=== PATIENT | male | born 1995 | race Two or more races ===

== ENCOUNTER 2017-01-18 20:37 | Emergency (ER) | payer OTHER ==
[2017-01-18 21:16] LABS: ABSOLUTE BASOPHILS # (AUTO) 0.1 10^3/uL (0.0-0.2); ABSOLUTE EOSINOPHILS # (AUTO) 0.3 10^3/uL (0.0-0.6); ABSOLUTE LYMPHOCYTES (AUTO) 2.3 10^3/uL (0.5-4.7); ABSOLUTE MONOCYTES (AUTO) 0.8 10^3/uL (0.1-1.4); BASOPHILS % (AUTO) 0.7 % (0-2); EOSINOPHILS % (AUTO) 2.8 % (0-6); HEMATOCRIT 46.6 % (37.9-51.0); HEMOGLOBIN 15.8 g/dL (13.5-17.0); HGB HCT DIFFERENCE 0.8; LYMPHOCYTES % (AUTO) 24.2 % (13-45); MEAN CORPUSCULAR HEMOGLOBIN 28.1 pg (27.0-33.4); MEAN CORPUSCULAR VOLUME 83 fl (80-97); MONOCYTES % (AUTO) 8.8 % (3-13); RED BLOOD COUNT 5.64 10^6/uL (4.35-5.55); RED CELL DISTRIBUTION WIDTH 12.9 % (11.5-14.0); SEGMENTED NEUTROPHILS % (AUTO) 63.5 % (42-78); WHITE BLOOD COUNT 9.5 10^3/uL (4.0-10.5)
[2017-01-18 21:22] LABS: APPEARANCE,URINE CLEAR; BILIRUBIN,URINE NEGATIVE (NEGATIVE); GLUCOSE, URINE NEGATIVE (NEGATIVE); KETONES,URINE NEGATIVE (NEGATIVE); LEUKOCYTE ESTERASE,URINE NEGATIVE (NEGATIVE); NITRITE,URINE NEGATIVE (NEGATIVE); PROTEIN,URINE NEGATIVE (NEGATIVE); UROBILINOGEN,URINE NEGATIVE mg/dL (<2.0)
[2017-01-18 21:37] LABS: ALANINE AMINOTRANSFERASE 37 U/L (21-72); ALBUMIN 4.8 g/dL (3.5-5.0); ALKALINE PHOSPHATASE 78 U/L (38-126); ANION GAP 13 (5-19); ASPARTATE AMINO TRANSFERASE 38 U/L (17-59); BILIRUBIN,DIRECT 0.3 mg/dL (0.0-0.4); BILIRUBIN,TOTAL 0.6 mg/dL (0.2-1.3); BLOOD UREA NITROGEN 19 mg/dL (7-20); CALCIUM 9.9 mg/dL (8.4-10.2); CARBON DIOXIDE 26 mmol/L (22-30); CHLORIDE 102 mmol/L (98-107); CREATININE RESULT 0.95 mg/dL (0.52-1.25); GLUCOSE 89 mg/dL (75-110); LIPASE 87.7 U/L (23-300); POTASSIUM 4.4 mmol/L (3.6-5.0); SODIUM 140.9 mmol/L (137-145); TOTAL PROTEIN 8.3 g/dL (6.3-8.2)
[2017-01-18] MEDS ORDERED: POLYETHYLENE GLYCOL 3350 POWDER 17 GM/1 PACKET PO ONE (23:33)
--- NOTE | 2017-01-18 23:33 | ER Document Report ---
ED General - General Chief Complaint: Abdominal Pain Stated Complaint: ABDOMINAL PAIN Time Seen by Provider: 01/18/17 21:52 Notes: Patient is a 21-year-old male without past medical history who presents with acute onset of lower abdominal pain approximately 45 hours prior to arrival. States that he does a diffuse lower abdominal pain that he describes as a cramping, stabbing pain. Nothing improves or worsens this pain. Denies any associated fever, nausea, vomiting or diarrhea. States he has had similar symptoms in the past when he has been constipated although notes that he has a bowel movement approximately every 1-2 days. He has not seen his primary care doctor regarding today's concerns. Denies any prior history of abdominal surgeries. Denies any testicular pain or dysuria. TRAVEL OUTSIDE OF THE [place] IN LAST 30 DAYS: No - Related Data Allergies/Adverse Reactions: No Known Allergies Allergy (Unverified 10/21/15 02:52) Home Medications: Current Home Medications RX: No Home Medications 01/18/17 [History] Past Medical History - General Information source: Patient - Social History Smoking Status: Never Smoker Frequency of alcohol use: None Drug Abuse: None Lives with: Spouse/Significant other Family History: Reviewed & Not Pertinent Patient has suicidal ideation: No Patient has homicidal ideation: No Renal/ Medical History: Denies: Hx Peritoneal Dialysis Review of Systems - Review of Systems Notes: Constitutional: Negative for fever. HENT: Negative for sore throat. Eyes: Negative for visual changes. Cardiovascular: Negative for chest pain. Respiratory: Negative for shortness of breath. Gastrointestinal: Positive for abdominal pain, negative for vomiting or diarrhea. Genitourinary: Negative for dysuria. Musculoskeletal: Negative for back pain. Skin: Negative for rash. Neurological: Negative for headaches, weakness or numbness. 10 point ROS negative except as marked above and in HPI. Physical Exam - Vital signs Vitals: Temp Pulse Resp BP Pulse Ox 98.1 F 77 16 116/75 98 01/18/17 20:59 01/18/17 20:59 01/18/17 20:59 01/18/17 20:59 01/18/17 20:59 Interpretation: Normal Notes: PHYSICAL EXAMINATION: GENERAL: Well-appearing, well-nourished and in no acute distress. HEAD: Atraumatic, normocephalic. EYES: Pupils equal round and reactive to light, extraocular movements intact, sclera anicteric, conjunctiva are normal. ENT: nares patent, oropharynx clear without exudates. Moist mucous membranes. NECK: Normal range of motion, supple without lymphadenopathy LUNGS: Breath sounds clear to auscultation bilaterally and equal. No wheezes rales or rhonchi. HEART: Regular rate and rhythm without murmurs ABDOMEN: Soft, nontender, normoactive bowel sounds. No guarding, no rebound. No masses appreciated. Genitourinary: Positive cremasteric reflex bilaterally. No epididymal or testicular tenderness on palpation. EXTREMITIES: Normal range of motion, no pitting or edema. No cyanosis. NEUROLOGICAL: No focal neurological deficits. Moves all extremities spontaneously and on command. PSYCH: Normal mood, normal affect. SKIN: Warm, Dry, normal turgor, no rashes or lesions noted. Course - Re-evaluation Re-evalutation: 01/18/17 23:30 Patient presents with 5 hours of acute onset of sharp, stabbing pain to the suprapubic and diffuse lower abdominal area. He has no focal rebound or guarding in any location. He has no focal tenderness location. Specifically no focal right lower quadrant tenderness and I do not suspect an acute appendicitis based on his exam or history. His history and exam are not consistent with an acute nephrolithiasis, pyelonephritis. Testicular exam is unremarkable without evidence of testicular torsion, epididymitis, no evidence of penile lesions. He has no upper abdominal tenderness to suggest an acute gastritis, cholecystitis, pancreatitis. Laboratories are unremarkable and do not suggest any acute pathology. Patient does relate a history of having one bowel movement approximately every 1-2 days but does take 10-20 minutes to have a bowel movement. Notes he has had similar pains in the past with constipation. This time I do not suspect any acute life-threatening pathology based on patient's well appearance, vitals, laboratories exam and history. I have encouraged him to start MiraLAX. I have informed him that we do not have a definitive diagnosis today but it may be related to constipation. I clearly informed him that he needs to return to the emergency department immediately if he has worsening of abdominal pain, his abdominal pain fails to improve, he develops a fever, vomiting, or has any other symptoms that are concerning. - Vital Signs Vital signs: Temp Pulse Resp BP Pulse Ox 98.8 F 78 17 107/60 97 01/18/17 23:59 01/18/17 23:59 01/18/17 23:59 01/18/17 23:59 01/18/17 23:59 - Laboratory Result Diagrams: 01/18/17 21:05 01/18/17 21:05 Laboratory results interpreted by me: 01/18/17 01/18/17 01/18/17 21:05 21:05 21:05 RBC 5.64 H Total Protein 8.3 H Urine Ascorbic Acid 40 H Discharge - Discharge Clinical Impression: Abdominal pain Qualifiers: Abdominal location: lower abdomen, unspecified Qualified Code(s): R10.30 - Lower abdominal pain, unspecified Condition: Good Disposition: HOME, SELF-CARE Instructions: Observation for Appendicitis ([facility]) Additional Instructions: You have been seen in the Emergency Department (ED) for abdominal pain. Your evaluation did not identify a clear cause of your symptoms but was generally reassuring. For your constipation: You should take 8 caps of MiraLAX and placed in 1 liter of Gatorade. Drink one half of the solution and wait 4 hours. If you do not have a bowel movement take the remaining half of the solution. Please follow up with your doctor as soon as possible regarding today's emergent visit and the symptoms that are bothering you. Return to the ED if your abdominal pain worsens or fails to improve, you develop bloody vomiting, bloody diarrhea, you are unable to tolerate fluids due to vomiting, fever greater than 101, or other symptoms that concern you.
[2017-01-19] VITALS: BP 107/60
== END 2017-01-18 23:59 | disposition home or self-care (01) ==
LOC: ER 20:37
DX: R10.30 Lower abdominal pain, unspecified (principal); Z87.19 Personal history of other diseases of the digestive system
CPT/HCPCS: 99284; 36415; 83690; 85025; 80053; 81001; J3490